=== PATIENT | female | born 1985 | race African-American/Black ===

== ENCOUNTER 2017-06-06 22:29 | Emergency (ER) | payer SELFPAY ==
[~2017-06-06] VITALS: Ht 154.9 cm; Wt 63.5 kg
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
[2017-06-06] MEDS ORDERED: LISI10TA2 PO (23:07)
[2017-06-06 23:30] VITALS: BP 141/73
[2017-06-06] MEDS ORDERED: LISINOPRIL 10 MG TABLET PO ONE (23:30)
[2017-06-06] MEDS ORDERED: ACETAMINOPHEN 500 MG TABLET PO ONE (23:30)
== END 2017-06-06 23:40 | disposition home or self-care (01) ==
LOC: ER 22:29
DX: F41.0 Panic disorder [episodic paroxysmal anxiety] (principal); I10 Essential (primary) hypertension
CPT/HCPCS: 99284

== ENCOUNTER 2017-06-23 22:20 | Emergency (ER) | payer OTHER ==
[~2017-06-23] VITALS: Ht 157.5 cm; Wt 63.5 kg
[~2017-06-23 22:20] MED LIST: LISI10TA2 PO
--- NOTE | 2017-06-23 22:59 | PHYS DOC ---
Past Medical History Past Medical History: Anxiety, Bipolar, Depression, Hypertension, Schizophrenia Past Surgical History: Tubal ligation Alcohol Use: None Drug Use: Cocaine Adult General Chief Complaint Chief Complaint: ANXIETY/PANIC ATTACK HPI HPI Patient is a 32 year old female who presents with complaints of anxiety, patient was in agreement discussion when she leaves and then after a disagreement she started becoming anxious. Patient also has complaints of a headache that is similar to previous headaches. Patient is a recovering the triadic, she has not used in 28 days. Patient denies any fevers, chills, rashes , trauma or sick contacts. Patient denies any vision changes, focal weakness or numbness. No neck pain. Patient vomited once, nonbloody. Review of Systems Review of Systems Constitutional: Denies fever or chills [] Eyes: Denies change in visual acuity, redness, or eye pain [] HENT: Denies nasal congestion or sore throat [] Respiratory: Denies cough or shortness of breath [] Cardiovascular: No chest pain GI: Denies abdominal pain,, bloody stools or diarrhea . Vomited times one : Denies dysuria or hematuria [] Musculoskeletal: Denies back pain or joint pain [] Integument: Denies rash or skin lesions [] Neurologic: Denies focal weakness or sensory changes . Yes to headache Current Medications Current Medications Current Medications Medications (Trade) Dose Ordered Sig/Nahum Start Time Stop Time Status Last Admin Dose Admin Acetaminophen (Tylenol) 1,000 mg 1X ONCE 06/23/17 23:00 06/23/17 23:01 DC 06/23/17 23:00 1,000 MG Diphenhydramine HCl (Benadryl) 25 mg 1X ONCE 06/23/17 23:00 06/23/17 23:01 DC 06/23/17 23:27 25 MG Prochlorperazine Edisylate (Compazine) 10 mg 1X ONCE 06/23/17 23:00 06/23/17 23:01 DC 06/23/17 23:26 10 MG Allergies Allergies Allergies Coded Allergies Type Severity Reaction Last Updated Verified Penicillins Allergy Severe throat swelling 06/23/17 Yes Physical Exam Physical Exam Constitutional: Well developed, well nourished, no acute distress, non-toxic appearance. [] HENT: Normocephalic, atraumatic, oropharynx moist, no oral exudates, nose normal. [] Eyes: EOMI, conjunctiva normal, no discharge. [] Neck: Normal range of motion, no tenderness, supple, no stridor. No LAD, no meningeal signs Cardiovascular:Heart rate regular rhythm, no murmur, equal pulses, normal perfusion Lungs & Thorax: Bilateral breath sounds clear to auscultation, no tachypnea Abdomen: Bowel sounds normal, soft, no tenderness, no masses, no pulsatile masses. [] Skin: Warm, dry, no erythema, no rash. [] Back: No tenderness, no CVA tenderness. [] Extremities: No tenderness, no cyanosis, no DVT, ROM intact, no edema. [] Neurologic: Alert and oriented X 3, normal motor function, normal gross sensory function, no focal deficits noted. No pronator drift. Patient ambulated in the ED with normal gait and without assistance Psychologic: Affect normal, judgement normal, mood normal. [] Current Patient Data Vital Signs Vital Signs Date Time Temp Pulse Resp B/P (MAP) Pulse Ox O2 Delivery O2 Flow Rate FiO2 06/23/17 22:40 98.9 99 16 132/66 (88) 97 Room Air 98.9 EKG EKG 2303 82, SR, no stemi[] Radiology/Procedures Radiology/Procedures [] Course & Med Decision Making Course & Med Decision Making Pertinent Labs and Imaging studies reviewed. (See chart for details) 2334 pt in nad, headache is gone. VS unremarkable. Pt requests discharge home [] Dragon Disclaimer Dragon Disclaimer This electronic medical record was generated, in whole or in part, using a voice recognition dictation system. Departure Departure Impression: Primary Impression: Headache Additional Impressions: Anxiety Stress reaction Disposition: 01 HOME, SELF-CARE Condition: IMPROVED Referrals: NO PCP (PCP) Patient Instructions: Anxiety and Panic Attacks, [id number], General Headache Without Cause Additional Instructions: Please follow-up with your doctor in 1 in a week if needed, you may also follow up by one of the clinics in the list provided to you. Problem Qualifiers Jada ROLDAN MD Jun 23, 2017 22:59
[2017-06-23] MEDS ORDERED: PROCHLORPERAZINE 10 MG/2 ML VIAL. IV ONE (23:00)
[2017-06-23] MEDS ORDERED: diphenhydrAMINE 50 MG/ML VIAL IV ONE (23:00)
[2017-06-23] MEDS ORDERED: ACETAMINOPHEN 500 MG TABLET PO ONE (23:00)
[2017-06-24 00:08] VITALS: BP 115/54
--- NOTE | 2017-06-24 07:11 | EKG ---
[facility] [address] [place] [address] Test Date: 2017-06-23 Test Time: 23:02:09 Pat Name: GOLD BLANK Department: Room: Gender: F [employer]: RIGO : 1985 Requested By: Jada ROLDAN Order Number: [id number] Reading MD: Measurements Intervals [place] Rate: 82 P: 43 [place]: 186 QRS: 48 QRSD: 70 T: 43 QT: 340 QTc: 400 Interpretive Statements SINUS RHYTHM OTHERWISE NORMAL ECG RI6.01 Unconfirmed report No previous ECG available for comparison
== END 2017-06-24 00:30 | disposition home or self-care (01) ==
LOC: ER 22:20
DX: F41.9 Anxiety disorder, unspecified (principal); R51 Headache; F43.9 Reaction to severe stress, unspecified; F20.9 Schizophrenia, unspecified; F31.9 Bipolar disorder, unspecified; I10 Essential (primary) hypertension; Z88.0 Allergy status to penicillin
CPT/HCPCS: 80047; 93005; 96374; 96375; 99284; J0780; J1200

== ENCOUNTER 2017-07-02 13:13 | Emergency (ER) | payer OTHER ==
[~2017-07-02] VITALS: Ht 157.5 cm; Wt 63.5 kg
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
[2017-07-02 14:40] LABS: ETHANOL < 10 mg/dL (0-10)
[2017-07-02 14:40] LABS: BARBITURATES NEG (NEG); BENZODIAZEPINES NEG (NEG); CANNABINOIDS NEG (NEG); COCAINE NEG (NEG); METHADONE NEG (NEG); OPIATES NEG (NEG); PHENCYCLIDINE NEG (NEG)
[2017-07-02] MEDS ORDERED: ACETAMINOPHEN 500 MG TABLET PO ONE (14:45)
[2017-07-02 15:00] VITALS: BP 137/86
== END 2017-07-02 15:35 | disposition home or self-care (01) ==
LOC: ER 13:13
DX: F43.21 Adjustment disorder with depressed mood (principal); F31.9 Bipolar disorder, unspecified; F41.9 Anxiety disorder, unspecified; I10 Essential (primary) hypertension; F20.9 Schizophrenia, unspecified; Z88.0 Allergy status to penicillin
CPT/HCPCS: 36415; 80307; 80329; 81025; 99284; G0480; G0479